=== PATIENT | female | born 1955 | race African-American/Black ===

== ENCOUNTER 2025-02-12 07:28 | Emergency (ER) | payer MEDICAID ==
[~2025-02-12] VITALS: Ht 172.7 cm; Wt 73.0 kg
[2025-02-12 07:32] VITALS: O2SAT 99
[2025-02-12] MEDS: ASPIRIN 325MG TABLET PO SCH (08:00)
[2025-02-12] MEDS: FAMOTIDINE 20MG/2ML VIAL IV SCH (08:00)
[2025-02-12 08:36] LABS: BASOPHILS % 1.5 % (0.0-2.0); EOSINOPHILS % 2.0 % (0.0-5.0); HEMATOCRIT. 31.1 % (36.0-48.0); HEMOGLOBIN. 10.2 g/dL (12.0-16.0); LYMPHOCYTES % 40.2 % (20.0-50.0); MEAN PLATELET VOLUME 9.3 fl (7.4-10.4); MONOCYTES % 6.9 % (2.0-8.0); NEUTROPHILS % 49.4 % (40.0-76.0); PLATELET 220 x1000/uL (130-400); RED BLOOD CELL COUNT 3.60 mill/uL (4.2-5.4); RED CELL DISTRIBUTION WIDTH 14.3 % (11.6-14.6)
[2025-02-12 08:56] LABS: TROPONIN I HIGH SENSITIVITY 12 ng/L (3.0-34)
[2025-02-12 09:17] LABS: CREATININE 1.4 mg/dL (0.6-1.0); UREA NITROGEN BLOOD 12.0 mg/dL (9-23)
[2025-02-12] MEDS: PANTOPRAZOLE 40MG DR TABLET PO NR (09:20)
[2025-02-12] MEDS ORDERED: HYDROXYZINE 25MG TABLET PO PRN (11:00)
[2025-02-12 16:25] LABS: CLARITY URINE CLEAR (CLEAR); COLOR URINE YELLOW (YELLOW); GLUCOSE URINE NEGATIVE (NEGATIVE); KETONES URINE NEGATIVE (NEGATIVE); LEUKOCYTE ESTERASE URINE TRACE (NEGATIVE); NITRITE URINE NEGATIVE (NEGATIVE); OCCULT BLOOD URINE NEGATIVE (NEGATIVE); PH URINE 7.5 (4.5-8.0); PROTEIN URINE NEGATIVE (NEGATIVE); SPECIFIC GRAVITY URINE 1.011 (1.005-1.030); UROBILINOGEN URINE 1.0 E.U./dL (0.2-1.0)
[2025-02-12 16:36] LABS: *AMPHETAMINES SCREEN URINE PRESUMPTIVE POSITIVE (NEGATIVE); *BARBITURATES SCREEN URINE NEGATIVE (NEGATIVE); *BENZODIAZEPINES SCREEN URINE NEGATIVE (NEGATIVE); *COCAINE SCREEN URINE NEGATIVE (NEGATIVE); CANNABINOID URINE SCREEN PRESUMPTIVE POSITIVE (NEGATIVE); ECSTASY MDMA SCREEN URINE NEGATIVE (NEGATIVE); METHADONE URINE SCREEN NEGATIVE (NEGATIVE); OPIATES URINE SCREEN NEGATIVE (NEGATIVE); PHENCYCLIDINE URINE SCREEN NEGATIVE (NEGATIVE)
[2025-02-12 16:45] LABS: BACTERIA URINE NONE SEEN; RBC URINE NONE SEEN /hpf (0-2); SQUAMOUS EPITHELIAL CELL URINE 1+ /lpf (RARE/1+)
[2025-02-12] MEDS ORDERED: QUETIAPINE FUMARATE 200MG TABLET PO SCH ×3 (21:00)
[2025-02-12] MEDS: NITROFURANTOIN 100MG M/M CAPSULE PO SCH (21:00)
[2025-02-12] MEDS: QUETIAPINE FUMARATE 50MG TABLET PO SCH (21:00)
[2025-02-13] MEDS ORDERED: CEPHALEXIN 250MG CAPSULE PO SCH
[2025-02-13 10:30] VITALS: BP 105/61; PULSE 72; RESP 18; TEMP 36.7; O2SAT 99
== END 2025-02-13 11:16 ==
LOC: ER 07:28 → CANBEDREQ 02-13 10:41 → ER 02-13 11:16
DX: F20.9 Schizophrenia, unspecified (principal); M79.18 Myalgia, other site; I10 Essential (primary) hypertension; I49.3 Ventricular premature depolarization; Z79.899 Other long term (current) drug therapy; Z20.822 Contact with and (suspected) exposure to COVID-19
CPT/HCPCS: 36415; 71045; 80048; 80305; 80307; 80320; 80329; 81003; 84484; 85025; 87426; 93005; 99285; G0480